=== PATIENT | female | born 1960 | race Caucasian/White ===

== ENCOUNTER 2016-08-12 04:27 | Inpatient (IN) | payer MEDICAID ==
[~2016-08-12] VITALS: Ht 152.4 cm; Wt 60.9 kg
[2016-08-12 06:00] VITALS: BP 158/80; PULSE 89; RESP 18; TEMP 97.8; O2SAT 98
[2016-08-12] MEDS ORDERED: diphenhydrAMINE HCL 50 MG CAP PO PRN (07:15)
[2016-08-12] MEDS ORDERED: diphenhydrAMINE HCL 50 MG/ML VIAL - HS PRN IM (07:15)
[2016-08-12] MEDS ORDERED: BENZTROPINE MESYLATE 2 MG/2 ML VIAL IM PRN (07:15)
[2016-08-12] MEDS ORDERED: ACETAMINOPHEN 325 MG TAB PO PRN (07:15)
[2016-08-12] MEDS ORDERED: LORazepam 2 MG/ML VIAL IM PRN (07:15)
[2016-08-12] MEDS ORDERED: BENZTROPINE MESYLATE 1 MG TAB PO PRN (07:15)
[2016-08-12] MEDS ORDERED: diphenhydrAMINE HCL 50 MG/ML VIAL IM PRN (07:15)
[2016-08-12] MEDS ORDERED: ALUMINUM/MAGNESIUM/SIMETH 30 ML CUP PO PRN (07:15)
[2016-08-12] MEDS ORDERED: MAGNESIUM HYDROXIDE SUSP 30 ML CUP PO PRN (07:15)
[2016-08-12] MEDS: NICOTINE 21 MG/24 HR PATCH T-DERMAL SCH (09:00)
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
[2016-08-12 20:00] VITALS: BP 122/72; PULSE 80; RESP 18; TEMP 97.7; O2SAT 98
[2016-08-12] MEDS: REMOVE OLD NICOTINE PATCH T-DERMAL SCH (21:00)
[2016-08-12] MEDS: diphenhydrAMINE HCL 50 MG CAP - HS PRN PO (22:35)
[2016-08-12] MEDS: BUDESONIDE-FORMOTEROL 160/4.5 MCG INHALER INH SCH (22:35)
[2016-08-13] MEDS: LORazepam 1 MG TAB PO PRN ×2 (03:14→21:11)
[2016-08-13 05:51] VITALS: BP 114/75; PULSE 84; RESP 16; TEMP 96.7; O2SAT 95
[2016-08-13] MEDS: NICOTINE 21 MG/24 HR PATCH T-DERMAL SCH (09:00)
[2016-08-13 09:01] LABS: BASOPHIL % 0.6 % (0.0-2.0); EOSINOPHIL # 0.2 TH/MM3 (0-0.4); EOSINOPHIL % 2.8 % (0.0-4.0); HEMATOCRIT 41.7 % (35.0-46.0); HEMO FLAGS DIFF FINAL; LYMPH % 40.2 % (9.0-44.0); LYMPHOCYTE # 2.3 TH/MM3 (1.0-4.8); MEAN CELL VOLUME 89.3 FL (80.0-100.0); MEAN CORPUSCULAR HEMOGLOBIN 30.7 PG (27.0-34.0); MEAN CORPUSCULAR HGB CONC 34.4 % (32.0-36.0); MONO % 5.5 % (0.0-8.0); NEUT % 50.9 % (16.0-70.0); PLATELET COUNT 207 TH/MM3 (150-450); RED BLOOD COUNT 4.66 MIL/MM3 (4.00-5.30); RED CELL DISTRIBUTION WIDTH 12.9 % (11.6-17.2); WHITE BLOOD COUNT 5.9 TH/MM3 (4.0-11.0)
[2016-08-13 09:29] LABS: ANION GAP 7 MEQ/L (5-15); BICARBONATE 28.7 MEQ/L (21.0-32.0); BLOOD UREA NITROGEN 14 MG/DL (7-18); CHLORIDE 107 MEQ/L (98-107); GLOMERULAR FILTRATION RATE 82 ML/MIN (>89); HDL CHOLESTEROL 60.7 MG/DL (40.0-60.0); POTASSIUM 3.9 MEQ/L (3.5-5.1); SODIUM (NA) 143 MEQ/L (136-145)
[2016-08-13 09:30] LABS: LDL CHOLESTEROL 72 MG/DL (0-99)
[2016-08-13] MEDS: LISINOPRIL 5 MG TAB PO SCH (09:38)
[2016-08-13] MEDS: BUDESONIDE-FORMOTEROL 160/4.5 MCG INHALER INH SCH ×2 (09:38→21:00)
[2016-08-13 11:19] LABS: HEMOGLOBIN A1a 0.9 %; HEMOGLOBIN A1b 0.8 %; HEMOGLOBIN Ao 86.6 %; HEMOGLOBIN F 0.7 %; HEMOGLOBIN LA1C 1.9 %; HEMOGLOBIN P3 3.6 %
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
[2016-08-13] MEDS ORDERED: SYMB160A INH (16:29)
[2016-08-13] MEDS ORDERED: LISI-519 PO (16:29)
[2016-08-13 21:00] VITALS: BP 130/94; PULSE 93; RESP 18; TEMP 97.3; O2SAT 97
[2016-08-13] MEDS: REMOVE OLD NICOTINE PATCH T-DERMAL SCH (21:00)
[2016-08-13] MEDS: diphenhydrAMINE HCL 50 MG CAP - HS PRN PO (23:12)
[2016-08-14 05:26] VITALS: BP 115/75; PULSE 84; RESP 16; TEMP 98; O2SAT 97
[2016-08-14] MEDS: LISINOPRIL 5 MG TAB PO SCH (08:57)
[2016-08-14] MEDS: NICOTINE 21 MG/24 HR PATCH T-DERMAL SCH (09:00)
[2016-08-14] MEDS: BUDESONIDE-FORMOTEROL 160/4.5 MCG INHALER INH SCH (09:00)
--- NOTE | 2016-08-14 10:25 | HHI.PYPN ---
Subjective Remarks Patient did not discharge last night because her son did not pick her up. Review of Systems Except as stated in HPI: all other systems reviewed are Neg Objective Alert: Yes [place]: Person, Place, Date, Situation Mood: Calm Affect: Euthymic Memory Intact: Immediate, Recent, Remote Hallucinations: Other Delusions: No Delusion Type: Other Suicidal: Ideation Homicidal: Ideation Insight/Judgment Adequate Vitals/IOs Vital Signs Date Time Temp Pulse Resp B/P Pulse Ox O2 Delivery O2 Flow Rate FiO2 08/14/16 05:26 98.0 84 16 115/75 97 Assessment & Plan Problem List: (1) Adjustment disorder ICD Code: F43.20 Assessment & Plan Estimated LOS: 1 days Justification for Cont. Inpt. No one to pick her up. Request HC Surrog/Guard Advoc?: No Problem Qualifiers (1) Adjustment disorder: Qualified Code: F43.22 - Adjustment disorder with anxious mood Tamir Dunham MD August 14, 2016 10:25
== END 2016-08-14 11:15 | disposition home or self-care (01) | DRG 882 ==
LOC: H260 04:27
PROVIDERS: ADMIT Psychiatry & Neurology Psychiatry; ATTEND Psychiatry & Neurology Psychiatry
DX: F43.20 Adjustment disorder, unspecified (principal)
CPT/HCPCS: 80048; 80061; 83036; 85025; Q0163